=== PATIENT | female | born 1975 | race Caucasian/White ===

== ENCOUNTER 2018-07-13 01:59 | Emergency (ER) | payer MEDICAID ==
--- NOTE | 2018-07-13 02:41 | ED Physician Chart ---
ED Chief Complaint/HPI - Patient Information Date Seen:: 07/13/18 Time Seen:: 02:20 Chief Complaint:: Headache History of Present Illness:: Pt came in by private auto because of onset of headache since about 1 am today. LAND is characterized as constant, throbbing, localized and bifrontal. Pt has had nasal congestion with yellow nasal discharge over past few days. Pt has had occasional phlegm. No fever. No N/V/D. No mentation change. Pt has not had any pain medication today. Pt has h/o HTN but has not been compliant with her antihypertensive medical therapy. Pt has been informed about the health risks associated with uncontrolled and poorly controlled HTN, as well as the importance of compliance to medical therapy. Pt acknowledges understanding. Allergies:: Allergies Allergy/AdvReac Type Severity Reaction Status Date / Time No Known Allergies Allergy Verified 07/13/18 02:11 Vitals:: Vital Signs - 8 hr 07/13/18 02:00 Temp 98.7 F HR 112 RR 20 BP 161/102 O2 Sat % 96 Historian:: Patient Family MD/PCP:: unknown. LMP:: 07/02/2018 Review:: Nurse's Note Reviewed ED Review of Systems - Review of Systems General/Constitutional: No fever, No weight loss, No weakness, No edema, No loss of appetite Skin: No rash, No bruising Head: Headache, No light-headedness Eyes: No loss of vision, No pain, No diplopia ENT: No earache, Nasal drainage, No sore throat Neck: No neck pain, No swelling, No thyromegaly, No stiffness, No mass noted Cardio Vascular: No chest pain, No palpitations, No PND, No orthopnea, No edema Pulmonary: No SOB, Cough, No wheezing GI: No nausea, No vomiting, No pain G/U: No dysuria, No frequency, No hematuria [employer]: No vaginal discharge, No abnormal vaginal bleed Musculoskeletal: No bone or joint pain Endocrine: No polyuria, No polydipsia Psychiatric: No prior psych history, No depression Hematopoietic: No bruising, No lymphadenopathy Allergic/Immuno: No urticaria Neurological: No syncope, No focal symptoms, No weakness, No paresthesia, Headache ED Past Medical History - Past Medical History Past Medical History: HTN Family History: Other (Pt is adopted and is unable to provide FHx.) Social History: Non Smoker, Alcohol (Pt has been informed about health risks associated with ethanol use and has been advised to stop. Pt has been encouraged to enroll in an alcohol detox. program. Pt acknowledges understanding. Pt denies any use of any alcohol today.), No Drug Use, Single, Other (lives with her friend.) Employment:: works in a [employer] track. Surgical History: Appendectomy (in 1999), (x 3 with last one in 2001) , other (Tubal ligation 2001.) Psychiatricy History: None Medication: Reviewed Family Medical History - Family Member Mother History Unknown: Yes ED Physical Exam - Physical Examination General/Constitutional: Awake, Well-developed, well-nourished (female), Alert, No distress, Non-toxic appearing, Ambulatory Other Gen/Cons comments:: female Head: Atraumatic Other Head comments:: tenderness to percussion at frontal sinus regions. Eyes: Lids, conjuctiva normal, PERRL, EOMI Skin: Nl inspection, No skin lesions, Well hydrated, No lymphadenopathy ENMT: TM canals nl, Oropharynx nl Other ENMT comments:: except there is light yellow postnasal drip and yellow exudate noticed in nasal passages. Neck: Nontender, Full ROM w/o pain, No nuchal rigidity, No mass Respiratory: Nl effort/Exclusion, Clear to Auscultation, No Wheeze/Rhonchi/Rales Cardio Vascular: RRR (HR 98), No murmur, gallop, rubs, Carotid/Femoral/Distal pulses equal bilaterally GI: No tenderness/rebounding/guarding, No organomegaly, No hernia, Normal BS's, Nondistended, No mass/bruits Other GI comments:: Abdomen is obese but soft. Extremities: No tenderness or effusion, Full ROM, normal strength in all extremities, No edema Neuro/Psych: Alert/oriented (oriented x 3), DTR's symmetric, No focal deficits Other Neuro/Psych comments:: CN II to XII are gross intact. Cerebellar exam (F to N, FILEMON): normal. ED Septic Shock - . Is Septic Shock (SBP<90, OR Lactate>4 mmol\L) present?: No - <6hrs of presentation: Vital Signs: Vital Signs - 8 hr 07/13/ 02:00 Temp 98.7 F HR 112 RR 20 BP 161/102 O2 Sat % 96 ED Reassessment (Disposition) - Reassessment Reassessment:: 0414 Pt has been repeatedly evaluated. Her LAND has resolved. BP has been improved to 141/62, HR 96. Pt states that she will follow with a PCP for further evaluation and management of her HTN. Pt requests to go home now and does not want further observation/management in hospital. Aftercare instructions have been given. Reassessment Condition:: Improved - Diagnosis Diagnosis:: Acute frontal sinusitis. Stable. HTN. Stable with repeat BP prior to discharge 141/62. - Aftercare/Follow up Instructions Aftercare/Follow-Up Instructions:: Refer to Discharge Instructions Notes:: Bed rest for today. May take Tylenol 500 mg tab one tab po q6h prn pain. Headache instructions given. Pt has been again reminded to be compliant with her low sodium diet and medical therapy. F/U with Dr. Echols or PCP of patient's choice in one day, sooner if condition worsens or if any further questions/problems. Medication Prescribed:: Bactrim DS one tab po q12h for 14 days. D-28 R-0 - Patient Disposition Discharge/Transfer:: Home Time:: 04:25 Condition at Disposition:: Stable, Improved
[2018-07-13] MEDS ORDERED: Sulfamethoxazole/TMP 800/160mg Tab ONE (03:06)
[2018-07-13] MEDS: Sulfamethoxazole/TMP 800/160mg Tab PO ONE (03:07)
== END 2018-07-13 04:30 | disposition home or self-care (01) ==
LOC: ER 01:59
DX: J01.10 Acute frontal sinusitis, unspecified (principal); I10 Essential (primary) hypertension; Z90.49 Acquired absence of other specified parts of digestive tract
CPT/HCPCS: Z7502; Z7610